=== PATIENT | female | born 1935 | race Caucasian/White ===

== ENCOUNTER → 2016-11-24 | Outpatient (CLI) | payer OTHER ==
[~2016-11-24] MED LIST: CENTRUM TABLET1 EACH; CLONAZEPAM 1 MG1 M1; COUMADIN 3 MG TA3 MG; DIGOXIN125 MCG; HYZAAR 100-251 EACH; NORCO 5-325 TA1 EACH PO; SIMVASTATIN20 MG
== END ==
LOC: RAD 01:43
DX: Z12.31 Encounter for screening mammogram for malignant neoplasm of breast (principal)

== ENCOUNTER 2017-08-22 08:33 | Inpatient (IN) | payer OTHER ==
[~2017-08-22] VITALS: Ht 160 cm; Wt 68.0 kg
[2017-08-22 08:34] VITALS: BP 128/54
[2017-08-22 09:20] LABS: ABSOLUTE NEUTROPHILS 5.5 thou/uL (1.4-8.2); BASOPHILS 0.4 % (0.0-2.0); EOSINOPHILS 0.1 % (0.0-3.0); HEMATOCRIT 36.7 % (37.0-47.0); HEMOGLOBIN 12.3 gm/dL (12.0-15.0); LYMPHOCYTES 7.4 % (24.0-44.0); MCH 30.5 pg (26.0-34.0); MCHC 33.7 g/dL (28.0-37.0); MCV 90.6 fL (80.0-100.0); MONOCYTES 8.8 % (1.0-8.0); PLATELET COUNT 133 thou/uL (150-400); POLYS 83.3 % (36.0-66.0); RBC 4.05 mil/uL (4.20-5.00); RDW 13.6 % (10.5-14.5); WBC 6.6 thou/uL (4.0-11.0)
[2017-08-22 09:27] LABS: CALCIUM 9.1 mg/dL (8.5-10.1); CREATININE 1.2 mg/dL (0.6-1.0); POTASSIUM 4.3 mmol/L (3.5-5.1)
[2017-08-22 09:32] LABS: INR 2.5; PROTIME 25.2 Seconds (9.3-11.4)
[2017-08-22 14:24] VITALS: BP 141/74
[2017-08-22 15:29] VITALS: BP 141/74
[2017-08-22 15:45] VITALS: BP 141/74
[2017-08-22] MEDS ORDERED: CLONAZEPAM 1 MG1 M1 PO (18:42)
[2017-08-22 19:45] VITALS: BP 105/67
[2017-08-23 04:50] VITALS: BP 108/54
[2017-08-23 05:33] LABS: HEMATOCRIT 33.6 % (37.0-47.0); HEMOGLOBIN 11.3 gm/dL (12.0-15.0); MCH 30.7 pg (26.0-34.0); MCHC 33.7 g/dL (28.0-37.0); MCV 90.9 fL (80.0-100.0); RBC 3.7 mil/uL (4.20-5.00); RDW 13.8 % (10.5-14.5); WBC 3.6 thou/uL (4.0-11.0)
[2017-08-23 05:39] LABS: CREATININE 1.3 mg/dL (0.6-1.0); POTASSIUM 4.2 mmol/L (3.5-5.1)
[2017-08-23 08:15] VITALS: BP 105/60
[2017-08-23 11:45] VITALS: BP 123/69
[2017-08-23 17:02] VITALS: BP 135/62
[2017-08-23 19:20] VITALS: BP 133/60
[2017-08-24 03:30] VITALS: BP 139/84
[2017-08-24 06:47] LABS: HEMATOCRIT 33.5 % (37.0-47.0); HEMOGLOBIN 11.1 gm/dL (12.0-15.0); MCH 30.5 pg (26.0-34.0); MCHC 33.2 g/dL (28.0-37.0); MCV 91.8 fL (80.0-100.0); RBC 3.64 mil/uL (4.20-5.00); RDW 13.9 % (10.5-14.5); WBC 3.1 thou/uL (4.0-11.0)
[2017-08-24 07:00] LABS: INR 1.5; PROTIME 15.1 Seconds (9.3-11.4)
[2017-08-24 07:02] LABS: CALCIUM 7.7 mg/dL (8.5-10.1); CREATININE 1.1 mg/dL (0.6-1.0); POTASSIUM 3.9 mmol/L (3.5-5.1)
[2017-08-24 07:53] VITALS: BP 150/80
[2017-08-24 12:06] LABS: TSH 3.881 uIU/mL (0.358-3.740)
[2017-08-24 15:20] VITALS: BP 145/76
[2017-08-24 15:22] VITALS: BP 145/76
[2017-08-24 20:00] VITALS: BP 175/84
[2017-08-25 03:50] VITALS: BP 128/63
[2017-08-25 04:30] LABS: ABSOLUTE NEUTROPHILS 2.3 thou/uL (1.4-8.2); BASOPHILS 0.3 % (0.0-2.0); EOSINOPHILS 3.4 % (0.0-3.0); HEMATOCRIT 33.8 % (37.0-47.0); HEMOGLOBIN 11.2 gm/dL (12.0-15.0); LYMPHOCYTES 33.1 % (24.0-44.0); MCH 30.3 pg (26.0-34.0); MCHC 33.2 g/dL (28.0-37.0); MCV 91.3 fL (80.0-100.0); PLATELET COUNT 111 thou/uL (150-400); POLYS 55.2 % (36.0-66.0); RDW 13.8 % (10.5-14.5); WBC 4.1 thou/uL (4.0-11.0)
[2017-08-25 04:39] LABS: MAGNESIUM 1.7 mg/dL (1.8-2.4); POTASSIUM 4.1 mmol/L (3.5-5.1)
[2017-08-25 08:05] VITALS: BP 139/77
[2017-08-25 16:22] VITALS: BP 154/68
[2017-08-25 19:15] VITALS: BP 147/67
[2017-08-26 03:40] VITALS: BP 148/76
[2017-08-26 07:02] LABS: HEMATOCRIT 33.4 % (37.0-47.0); HEMOGLOBIN 11.3 gm/dL (12.0-15.0); MCH 30.4 pg (26.0-34.0); MCHC 33.6 g/dL (28.0-37.0); MCV 90.4 fL (80.0-100.0); RBC 3.7 mil/uL (4.20-5.00); RDW 13.9 % (10.5-14.5); WBC 5.1 thou/uL (4.0-11.0)
[2017-08-26 07:19] LABS: INR 1.5; PROTIME 15.7 Seconds (9.3-11.4)
[2017-08-26 07:20] LABS: CALCIUM 8.6 mg/dL (8.5-10.1); POTASSIUM 4.2 mmol/L (3.5-5.1)
[2017-08-26 07:41] VITALS: BP 157/78
[2017-08-26 08:21] VITALS: BP 157/78
[2017-08-26] MEDS ORDERED: REQUIP 0.25 M0.25 MG PO (13:15)
[2017-08-26] MEDS ORDERED: TAMIFLU30 MG PO (13:15)
[2017-08-26] MEDS ORDERED: TESSALON PERLE100 MG PO (13:15)
[2017-08-26 13:17] LABS: % SATURATION 12 % (20-39); IRON 29 ug/dL (50-170); TIBC 234 ug/dL (250-450)
[2017-08-26] MEDS ORDERED: COUMADIN 5 MG TA5 M1 PO (13:30)
[2017-08-26] MEDS ORDERED: COUMADIN 2.5MG2.5 M1 PO (13:30)
== END 2017-08-26 14:55 | disposition home health service (06) | DRG 871 ==
LOC: ER 08:33 → EROBS 10:07 → 3W 10:07
PROVIDERS: Emergency Medicine; Hospitalist; Registered Nurse
DX: A41.9 Sepsis, unspecified organism (principal); J96.01 Acute respiratory failure with hypoxia; E87.2 Acidosis; D61.818 Other pancytopenia; F41.9 Anxiety disorder, unspecified; J10.1 Influenza due to other identified influenza virus with other respiratory manifestations; I48.2 Chronic atrial fibrillation; I10 Essential (primary) hypertension; E78.00 Pure hypercholesterolemia, unspecified; Z87.442 Personal history of urinary calculi; Z87.81 Personal history of (healed) traumatic fracture; Z79.01 Long term (current) use of anticoagulants; Z79.899 Other long term (current) drug therapy
CPT/HCPCS: 10879

== ENCOUNTER → 2017-12-26 | Outpatient (CLI) | payer OTHER ==
[~2017-12-26] MED LIST changes: +CLONAZEPAM 1 MG1 M1 PO; +COUMADIN 2.5MG2.5 M1 PO; +COUMADIN 5 MG TA5 M1 PO; +REQUIP 0.25 M0.25 MG PO; +TAMIFLU30 MG PO; +TESSALON PERLE100 MG PO
== END ==
LOC: RAD 13:21
DX: Z12.31 Encounter for screening mammogram for malignant neoplasm of breast (principal)

== ENCOUNTER → 2018-01-25 | Outpatient (CLI) | payer OTHER | LOC: RAD 01:13 | DX: N60.01 Solitary cyst of right breast (principal) ==

== ENCOUNTER 2018-07-11 18:24 | Inpatient (IN) | payer OTHER ==
[~2018-07-11] VITALS: Ht 157.5 cm; Wt 72.8 kg
[2018-07-11 18:30] VITALS: BP 173/82
--- NOTE | 2018-07-11 18:55 | NUR ---
REPORT TO LU CARBAJAL
[2018-07-11 18:56] LABS: ABSOLUTE NEUTROPHILS 2.9 thou/uL (1.4-8.2); BASOPHILS 0.6 % (0.0-2.0); EOSINOPHILS 2.7 % (0.0-3.0); HEMATOCRIT 39.7 % (37.0-47.0); HEMOGLOBIN 13.4 gm/dL (12.0-15.0); MCH 30.9 pg (26.0-34.0); MCHC 33.8 g/dL (28.0-37.0); MCV 91.4 fL (80.0-100.0); MONOCYTES 9.5 % (1.0-8.0); PLATELET COUNT 175 thou/uL (150-400); POLYS 52.2 % (36.0-66.0); RBC 4.34 mil/uL (4.20-5.00); RDW 13.5 % (10.5-14.5); WBC 5.6 thou/uL (4.0-11.0)
[2018-07-11 19:02] LABS: ANION GAP 10 mmol/L (7-16); BUN 20 mg/dL (7-18); CALCIUM 8.7 mg/dL (8.5-10.1); CHLORIDE 95 mmol/L (98-107); CO2 27 mmol/L (21-32); CREATININE 1.1 mg/dL (0.6-1.0); GLUCOSE 106 mg/dL (74-106); POTASSIUM 3.8 mmol/L (3.5-5.1); SODIUM 132 mmol/L (136-145)
[2018-07-11 19:10] LABS: ALBUMIN 3.8 g/dL (3.4-5.0); SGOT 34 U/L (15-37); SGPT 78 U/L (30-65); TOTAL BILIRUBIN 0.6 mg/dL (<0.1-1.0); TROPONIN-I <0.06 ng/mL (<0.06)
[2018-07-11] MEDS ORDERED: TYLENOL325 MG PO (19:44)
[2018-07-11] MEDS ORDERED: REQUIP 0.25 M0.25 MG PO (19:44)
[2018-07-11 19:56] LABS: BE(vivo) -1.7 mmol/L (-2 to +3); HCO3 23.2 mmol/L (22.0-26.0); PO2 73.1 mmHg (80.0-100.0); pH 7.382 (7.360-7.450); sO2 94.5 % (92.0-98.0)
[2018-07-11 21:11] LABS: INR 4.4; PROTIME 45.5 Seconds (9.3-11.4)
[2018-07-11 21:21] VITALS: BP 145/63
[2018-07-11 22:09] VITALS: BP 149/61
--- NOTE | 2018-07-11 23:36 | EKG ---
[address] [address] ELECTROCARDIOGRAM REPORT Name: ANANT SWEET Room #: 464-P ADM IN M.R.#: [id number] Admission: 07/11/18 Attend Phys: Fabien Mcneill MD Discharge: Date of : 37 Report #: [id number] THIS REPORT FOR: //name// [facility] ED Test Date: 2018-07-11 Test Time: 18:38:56 Pat Name: ANANT SWEET Department: Room: 464 Gender: F Accountant Cost: : [id number] Requested By: Caterina Powers Order Number: [id number] MD: Keshav Garner Measurements Intervals [place] Rate: 73 P: NE: QRS: 99 QRSD: 97 T: -55 QT: 416 QTc: 459 Interpretive Statements Atrial fibrillation Anteroseptal infarct, age indeterminate Compared to ECG 07/08/2006 12:35:44 Myocardial infarct finding now present ST (T wave) deviation no longer present Electronically Signed On 07-11-2018 23:35:56 MANAGER OF DISTRIBUTION by Keshav Garner [email or web address] <ELECTRONICALLY SIGNED> By: Keshav Garner MD 07/11/18 2335 1838 1838 Keshav Garner MD /EPI
--- NOTE | 2018-07-12 03:22 | NUR ---
CAME IN TO GIVE PATIENT RESP TX, NOTICED HER BREATHING WAS LABORED, LONG EXPIRATORY WHEEZE THAT WAS NOT THERE AT 11PM TX. BNP FROM ER WAS ELEVATED. REPORTED CONCERNS TO RN. ROOM AIR SAT = 93%
[2018-07-12 04:24] VITALS: BP 161/88
[2018-07-12 05:27] LABS: HEMATOCRIT 37.5 % (37.0-47.0); HEMOGLOBIN 12.4 gm/dL (12.0-15.0); MCH 30.4 pg (26.0-34.0); MCV 92.2 fL (80.0-100.0); RBC 4.07 mil/uL (4.20-5.00); RDW 13.3 % (10.5-14.5); WBC 4.9 thou/uL (4.0-11.0)
[2018-07-12 05:39] LABS: INR 3.8; PROTIME 39.6 Seconds (9.3-11.4)
[2018-07-12 05:56] LABS: CALCIUM 8.3 mg/dL (8.5-10.1); CREATININE 1.1 mg/dL (0.6-1.0)
--- NOTE | 2018-07-12 06:19 | NUR ---
Received pt from ED. Pt has been having SOA x1 week. Chest x-ray showed cardiopulmonary disease. Pt is on Bioniz tele running afib. Shes on 2L NC. She has I.V on R AC. Up x1 with cane. AOX4. Bed in lowest position. Call light within reach. Will continue to monitor.
[2018-07-12 07:41] VITALS: BP 134/62
--- NOTE | 2018-07-12 09:45 | NUR ---
cm visited with pt, daughter servando and sister in law at bedside. colette is able to speak and understands polish, primary is japanese per colette. pt is a & o x 3, [place] and [place]. intro to cm and transition of care, home health and post acute. " oh no i will not go to home, i work 23 years in [employer] and i seen."/colette. pt because little tearful. re-education that was just giving some examples on how cm can assist and help pt with transition out of hospital if unable to return home or if needing some therapy. pt on o2, reported that she does not have home oxygen. " live alone, has cane, walker, grab bars, independent. manage own medication prior. did not drive, family and friends take her where she needs to go. she just got back from [place], visited her brother who is ill, not heat, not hot water where she was stay and go sick there. if she need help at home, i can stay with her. family can do her laundry so she will not have to go to basement 15 steps down."/colette and daughter servando. pt walker with therapy. recommendation home with hh will cont following as needed for dc needs. resources for hh provided and [facility] as well. hh referral sent. will cont following as needed for dc needs.
--- NOTE | 2018-07-12 11:22 | NUR ---
Pt vs stable this am, at 11:00 am pt's breathing was labored, RT in the room lungs are clear, O2sat is at 98. Pt will be going down to get her echo test done.
--- NOTE | 2018-07-12 13:54 | 2DMMODE ---
[facility] [address] [place] [address] 2 D/M-MODE ECHOCARDIOGRAM Name: SWEETANANT Room #: 464-P ADM IN M.R.#: [id number] Admission: 07/11/18 Attend Phys: Fabien Mcneill, Discharge: Date of : 37 Date of Service: 07/12/18 1353 Report #: [id number] THIS REPORT FOR: //name// APPROVED REPORT Study performed: 07/12/2018 11:34:46 EXAM: Comprehensive 2D, Doppler, and color-flow Echocardiogram Patient Location: Echo lab Room #: 464 Status: routine BSA: 1.74 HR: 94 bpm Rhythm: Atrial Fibrillation Other Information Study Quality: Good Indications Diabetes Atrial Fibrillation Dyspnea Hypertension/HDD 2D Dimensions IVSd: 9.11 (7-11mm) LVOT Diam: 22.11 (18-24mm) LVDd: 49.99 mm PWd: 8.50 (7-11mm) Ascending Ao: 26.58 (22-36mm) LVDs: 33.84 (25-40mm) Aortic Root: 22.45 mm IVC: 24.00 mm Volumes Left Atrial Volume (Systole) Single Plane 4CH: 136.86 mL Single Plane 2CH: 158.81 mL LA ESV Index: 88.00 mL/m2 Aortic Valve AoV Peak Ja.: 1.72 m/s AO Peak Gr.: 11.85 mmHg LVOT Max P.45 mmHg LVOT Max V: 1.16 m/s THANH Vmax: 2.60 cm2 Mitral Valve MV Peak Gr.: 14.08 mmHg [facility] [address] [place] [address] 2 D/M-MODE ECHOCARDIOGRAM Name: ANANT SWEET Room #: 464-P ADM IN .R.#: [id number] Admission: 07/11/18 Attend Phys: Fabien Mcneill, Discharge: Date of : 37 Date of Service: 07/12/18 1353 Report #: [id number] MV Mean Gr.: 5.77 mmHg MV Max Ja.: 1.87 m/s MV Mean Ja.: 1.09 m/s MV VTI: 496.87 mm MV PHT: 123.35 ms MVA (PHT): 1.78 cm2 Pulmonary Valve PV Peak Ja.: 1.30 m/s PV Peak Gr.: 6.82 mmHg Tricuspid Valve TR Peak Ja.: 2.21 m/s TR Peak Gr.: 19.77 mmHg PA Pressure: 35.00 mmHg Left Ventricle The left ventricle is normal size. There is normal LV segmental wall motion. There is normal left ventricular wall thickness. The left ventricular systolic function is normal. The left ventricular ejection fraction is within the normal range. LVEF is 55-60%. This study is not technically sufficient to allow evaluation of the LV diastolic function due to atrial fibrillation. Right Ventricle The right ventricle is normal size. The right ventricular systolic function is normal. Atria Left atrium is dilated. Right atrium is dilated. Aortic Valve The aortic valve is normal in structure. No aortic regurgitation is present. There is no aortic valvular stenosis. Mitral Valve The mitral valve is normal in structure. Moderate mitral regurgitation. Mild mitral stenosis. Tricuspid Valve The tricuspid valve is normal in structure. There is mild tricuspid regurgitation. Estimated PAP 35 mmHg. There is mild pulmonary hypertension. Pulmonic Valve The pulmonary valve is normal in structure. Trace pulmonic regurgitation. [facility] [address] [address] 2 D/M-MODE ECHOCARDIOGRAM Name: ANANT SWEET Room #: 464-P ADM IN M.R.#: [id number] Admission: 07/11/18 Attend Phys: Fabien Mcneill, Discharge: Date of : 37 Date of Service: 07/12/18 1353 Report #: [id number] Great Vessels The aortic root is normal in size. The inferior vena cava is dilated with no inspiratory collapse. Pericardium Small pericardial effusion. <Conclusion> The left ventricle is normal size. LVEF is 55-60%. This study is not technically sufficient to allow evaluation of the LV diastolic function due to atrial fibrillation. The right ventricle is normal size. Left atrium is dilated. Right atrium is dilated. The aortic valve is normal in structure. Moderate mitral regurgitation. Mild mitral stenosis. There is mild tricuspid regurgitation. Estimated PAP 35 mmHg. There is mild pulmonary hypertension. The aortic root is normal in size. Small pericardial effusion. <ELECTRONICALLY SIGNED> By: Taran Julian MD, FACC 07/12/18 1353 1353 1353 Taran Julian MD, FACC /INF
[2018-07-12 14:28] VITALS: BP 133/53
[2018-07-12 20:48] VITALS: BP 139/71
[2018-07-13 04:39] VITALS: BP 139/62
[2018-07-13 04:58] LABS: INR 3.6; PROTIME 37.5 Seconds (9.3-11.4)
--- NOTE | 2018-07-13 05:16 | NUR ---
ASSUMED CARE OF PT APPROX 1900HRS PT A&O X4 LANGAUGE BARRIER NAMIBIAN SPEAKING COOPERATIVE DURING BUT OCC ANXIOUS. PT ON 3L O2 PER NC. SBA WITH TRANSFERS. CHROMIC AFIB ON TELE. OCC C/O LOW BACK PAIN EFFECTIVELY CONTROLLED VIA PRN PAIN MEDS.
[2018-07-13 08:20] VITALS: BP 138/62
--- NOTE | 2018-07-13 12:31 | HC ---
[facility] [place] [address] CONSULTATION Name: ANANT SWEET Room #: 464-P ADM IN M.R.#: [id number] Admission: 07/11/18 Attend Phys: Fabien Mcneill MD Discharge: Date of : 37 Report #: [id number] THIS REPORT FOR: //name// CC: Bri Mcneill REASON FOR CONSULTATION: I was asked to evaluate concerning pneumonia and travel to [place]. HISTORY OF PRESENT ILLNESS: The patient is an 83-year-old woman immigrant from [place] who has underlying valvular heart disease and atrial fibrillation. She was in [place] the past 2 weeks, visiting her brother who was ill. This past week, she developed cough with congestion, light colored sputum production along with low-grade fever without chills or sweats. She became more dyspneic and was seen by local physician in [facility], who placed her on lincomycin and some oral cough preparations. She did not feel she improved with this treatment. She flew back to [facility] yesterday and was brought into the Emergency Room. She has remained afebrile and hemodynamically stable. She denies any chest pain either substernal or pleuritic. There has been no hemoptysis. She has had minimal sputum production since presentation. Denies any sinus congestion, postnasal drip, oral lesions or pharyngitis symptoms. Denies any skin rashes or lymphadenopathy. She has been updated on her vaccinations for influenza and pneumococcal vaccines. No other travel partners were ill. She slept in the same room with her sister who has been well. She has underlying cardiovascular ischemia. She has underlying valvular heart disease with atrial fibrillation and on anticoagulation. She has had significant mitral stenosis and regurgitation, has been followed by Cardiology service. REVIEW OF SYSTEMS: Ten point review of systems was otherwise negative than what has been described above. ALLERGIES: None known. MEDICATIONS: As noted on her MAR, which were reviewed including Tessalon, Klonopin, digoxin, losartan, hydrochlorothiazide, ReQuip, Zocor, simvastatin and Coumadin. She was given doxycycline in the Emergency Room. PAST MEDICAL HISTORY: Atrial fibrillation, rheumatic fever, mitral stenosis and regurgitation, hypertension, hyperlipidemia, nephrolithiasis, umbilical herniorrhaphy, prior ankle fractures. FAMILY HISTORY: Noncontributory. SOCIAL HISTORY: She is a , has been in [facility] since the 1960s. Previously worked in residential. Nonsmoker, no significant alcohol intake. [facility] [address] [place] [address] CONSULTATION Name: ANANT SWEET Room #: 464-P [facility] IN ..#: [id number] Admission: 07/11/18 Attend Phys: Fabien Mcneill MD Discharge: Date of : 37 Report #: [id number] PHYSICAL EXAMINATION: VITAL SIGNS: Afebrile, heart rate 80, blood pressure 134/62, respiratory rate 16. She is on 2 liters of oxygen per nasal cannula. Last oxygen saturation in the chart was normal on room air. ABG on room air showed pO2 of 73, pCO2 of 40, pH 7.38. GENERAL: She was alert and cooperative. She was dyspneic. She was anxious, family members were in the room. SKIN: Without lesion or rash. No palpable adenopathy. Mild obesity. HEENT: Eyes nonicteric with no conjunctivitis. Mouth without lesion or mucositis. No posterior oropharynx injection. NECK: Supple with no thyromegaly, mass or JVD. LUNGS: Few crackles in the mid posterior right chest. No consolidation or rub. HEART: Irregular with a 2/6 systolic murmur heard at the apex. No gallop or rub. ABDOMEN: Soft, nontender, no hepatosplenomegaly or mass. GENITAL AND RECTAL: Not performed. BACK: Nontender involving the spine or CVA regions. Cranial nerves intact. Strength in the upper and lower extremities were normal. Sensation normal. The patient was able to sit up to the side of bed on her own. There is no evidence of vertigo or instability. Mood was normal other than mild anxiety with normal mental status. Chest x-ray unremarkable. CT scan showed patchy right lung pulmonary infiltrate and increased interstitial changes. Sodium 135, potassium 4, creatinine 1.1, bicarbonate 25. INR 3.8, hemoglobin 12.4, platelet count 161,000. WBC 4.9 with 52% segs, 35% lymphs. Liver function test normal. BNP 1452. IMPRESSION: 1. An 83-year-old with underlying valvular heart disease and permanent atrial fibrillation who presents with community-acquired pneumonia that developed in [place]. Typical community-acquired organisms are most likely. Viral etiology included. The patient continues to have dyspnea, which may have a component of cardiogenic process as well. 2. Hypertension, controlled. 3. Atrial fibrillation. 4. Valvular heart disease. 5. Anxiety. RECOMMENDATION: We will continue antibiotic coverage with azithromycin, ceftriaxone, and Tamiflu. Check viral respiratory panel, sputum culture. Follow up chest x-ray, urine antigens. <ELECTRONICALLY SIGNED> By: Elias Dumont MD 07/13/18 1231 1332 2132 Elias Dumont MD /nt
[2018-07-13 14:58] VITALS: BP 145/65
--- NOTE | 2018-07-13 15:15 | HC ---
[facility] [place] [address] CONSULTATION Name: ANANT SWEET Room #: 464-P ADM IN M.R.#: [id number] Admission: 07/11/18 Attend Phys: Fabien Mcneill MD Discharge: Date of : 37 Report #: [id number] THIS REPORT FOR: //name// CC: Bri Mcneill DATE OF SERVICE: 07/12/2018 REFERRAL PHYSICIAN: Dr. Fabien Mcneill. REASON FOR REFERRAL: Dyspnea. HISTORY OF PRESENT ILLNESS: The patient is patient is an 83-year-old female who presents to the Emergency Room with dyspnea, cough and congestion. A Pulmonary consultation was requested. The patient normally lives in the [facility]. She was visiting [place] past week. While she was there, she noticed fever, cough productive of purulent sputum. In [place], she was given lincomycin, mucolytic and anti-inflammatory agents. She returned to the [facility] couple days ago. With symptoms worsening, she presents to the Emergency Room. Presently, she appears distressed, more so from stress from her family in [place]. The 2 daughters present were tearful. The patient was also tearful and appears quite upset. Otherwise, she says she feels about the same. Dyspnea is no worse. She denies any hemoptysis, nausea or vomiting. PAST MEDICAL HISTORY: History notable for permanent atrial fibrillation, on chronic anticoagulation; mitral stenosis along with regurgitation; hypertension; hypercholesterolemia; nephrolithiasis. PAST SURGICAL HISTORY: Status post umbilical hernia repair, bilateral ankle surgery. ALLERGIES: None. HOME MEDICATIONS: Hyzaar, Lanoxin, Centrum, clonazepam, Coumadin, simvastatin, ReQuip, Tylenol. She was recently on Tamiflu, Tessalon Perles. FAMILY HISTORY: Noncontributory. SOCIAL HISTORY: Denies any tobacco or alcohol use. REVIEW OF SYSTEMS: As mentioned above. Recent travel to [place]. Otherwise, 10-point system review negative. [facility] [address] [place] [address] CONSULTATION Name: ANANT SWEET Room #: 464-P [facility] IN .R.#: [id number] Admission: 07/11/18 Attend Phys: Fabien Mcneill MD Discharge: Date of : 36 Report #: [id number] PHYSICAL EXAMINATION: GENERAL: She is awake, alert, appears mildly distressed primarily due to emotional distress from family issues. She appears to be upset. VITAL SIGNS: Temperature is 97.8 degrees Fahrenheit, pulse is 80, respiratory rate is 18, blood pressure 130/62 mmHg, saturation is 98%. HEENT: Normocephalic, atraumatic. NECK: Supple, without any lymphadenopathy or thyromegaly. CHEST: Breath sounds are good bilaterally. Few scattered crackles in the bases. No wheezes. CARDIOVASCULAR: Normal S1, S2. No murmurs or gallop. There is no JVD. There is no carotid bruit. Pulses are 2+/4+ bilaterally. ABDOMEN: Soft, nontender, no organomegaly or masses felt. GENITOURINARY: Deferred. RECTAL: Deferred. EXTREMITIES: There is no edema, cyanosis or clubbing. LABORATORY DATA: Chest x-ray is reviewed, shows cardiomegaly. Otherwise, no acute infiltrate seen. CT chest angiogram shows patchy ground-glass opacity. No evidence of pulmonary embolus, patchy areas of consolidation, cardiomegaly. Otherwise, no other abnormalities noted. Influenza A and B swab is negative. BNP is 1400. Lactic acid is normal. Electrolytes normal. Creatinine is 1.1. Liver enzymes are grossly unremarkable. WBC 5600, hemoglobin is normal, platelets are normal. No evidence of bandemia. No evidence of eosinophilia. Arterial blood gas revealed pH 7.38, pCO2 40, pO2 73 on room air. IMPRESSION: 1. Progressive dyspnea, productive cough in this 83-year-old female. She recently traveled to [place]. CT chest angiogram shows ground glass opacity with mild patchy infiltrates. Suspect pneumonia. With cardiomegaly, ground glass opacity, cannot rule out component of heart failure. 2. Permanent atrial fibrillation, on chronic anticoagulation. 3. Mitral stenosis/regurgitation. 4. Hypertension. 5. Nephrolithiasis. 6. Diabetes mellitus type 2. 7. Hypertension. 8. Restless legs syndrome, on ReQuip. RECOMMENDATION: Agree with broad-spectrum antibiotics to cover for community-acquired pneumonia. DVT and GI prophylaxis recommended. Gentle diuresis may be helpful. [address] [address] CONSULTATION Name: ANANT SWEET Room #: 464-P ADM IN M.R.#: [id number] Admission: 07/11/18 Attend Phys: Fabien Mcneill MD Discharge: Date of : 37 Report #: [id number] Thank you for this consultation. <ELECTRONICALLY SIGNED> By: Alfred Rios MD 07/13/18 1515 1347 2152 Alfred Rios MD /nt
[2018-07-13 19:37] VITALS: BP 155/56
--- NOTE | 2018-07-13 20:05 | NUR ---
Pt stable through out the shift, went down for an xray this am. Family came to visit and pt exhibited labored breathing, O2 sat was at 98% on 2L via NC. Labored breathing resolved in the afternoon when family had left. Pt is eating and drinking more today compared to yesterday. No complaints of pain was noted.
[2018-07-14 04:09] VITALS: BP 134/69
[2018-07-14 05:42] LABS: INR 3.5; PROTIME 36.5 Seconds (9.3-11.4)
[2018-07-14 08:00] VITALS: BP 150/74
--- NOTE | 2018-07-14 08:23 | NUR ---
progress pt slept most of shift up with sba and cane to br voiding qs, taking tramadol for pain with effect pt slept most of shift vss, continue poc.
[2018-07-14 15:00] VITALS: BP 157/66
[2018-07-14 19:40] VITALS: BP 171/47
--- NOTE | 2018-07-14 20:13 | NUR ---
Pt stable through out the shift, SOB is better as verbalized by the pt. Prefers hot soup and broh with her meals. No complaints or issues identified today.
[2018-07-15 02:45] VITALS: BP 148/61
[2018-07-15 05:46] LABS: HEMOGLOBIN 11.4 gm/dL (12.0-15.0); MCH 30.3 pg (26.0-34.0); MCHC 32.5 g/dL (28.0-37.0); MCV 93.3 fL (80.0-100.0); RBC 3.76 mil/uL (4.20-5.00); RDW 14.1 % (10.5-14.5); WBC 5.5 thou/uL (4.0-11.0)
[2018-07-15 05:56] LABS: INR 2.7; PROTIME 27.6 Seconds (9.3-11.4)
[2018-07-15 06:24] LABS: ALBUMIN 2.9 g/dL (3.4-5.0); CALCIUM 8.1 mg/dL (8.5-10.1); CREATININE 1.1 mg/dL (0.6-1.0); POTASSIUM 4.9 mmol/L (3.5-5.1); TOTAL BILIRUBIN 0.4 mg/dL (<0.1-1.0); TOTAL PROTEIN 6.4 g/dL (6.4-8.2)
[2018-07-15 07:54] VITALS: BP 152/77
[2018-07-15] MEDS ORDERED: CLONAZEPAM 0.50.5 M1 PO (12:57)
[2018-07-15] MEDS ORDERED: ZITHROMAX250 MG PO (13:00)
[2018-07-15 13:12] VITALS: BP 152/77
[2018-07-15 13:22] VITALS: BP 152/77
--- NOTE | 2018-07-15 14:18 | NUR ---
DISCHARGE NOTE: CHRISTIAN reviewed chart and spoke with nursing and attending physician. Pt is medically stable for discharge home today with HH services. SW notified intake at [facility] who confirms they are able to accept pt on service. CHRISTIAN spoke with pt's dtr, Xochilt, via phone to provide update and notify of d/c orders. Pt's dtr is aware and agreeable with discharge plan. Pt's family will provide transportation home later this evening. Pt's dtr is agreeable with plan for discharge and HH services. CHRISTIAN confirmed pt's home address/phone number. Pt's PCP is Dr. Bri Branch. CHRISTIAN updated pt's nurse. No further SW needs identified at this time, but is available to assist should needs arise.
[2018-07-15 14:54] VITALS: BP 142/54
--- NOTE | 2018-07-15 17:51 | NUR ---
ASSUMED PT CARE AT 0645. HAD SOME ISSUES WITH D/C TODAY. PT WAS D/C BY DR MROOCHO, WHICH PATIENT DISPUTED, SHE DIDNT FEEL READY TO COME HOME. SOCIAL WORK GOT INVOVLED AND CALLED DR KENNEDY WHOM OK THE CONSULT FOR U. CONSULTED DR BAHENA IN THE [facility]. HE SPOKE WITH DR MOROCHO AND MARQUITA MILLER AND GOT THE OK TO SEE HER. HE BELIEVES SHE WOULD BEENFIT FROM OUTPT SERVICES. PT WILL STAY THE NIGHT AND D/C IN THE MORNING. PT AND FAMILY OK WITH THIS PLAN. ANY QUESTIONS ABOUT THIS OCCURANCE OR REPORT PLEASE CONTACT MARQUITA MILLER WITH CASE MANAGEMENT.
[2018-07-15 19:31] VITALS: BP 149/73
[2018-07-16 04:19] VITALS: BP 142/64
[2018-07-16 08:04] VITALS: BP 148/62
[2018-07-16 08:51] LABS: FOLIC ACID 32.5 ng/mL (8.6-58.9)
--- NOTE | 2018-07-16 09:06 | NUR ---
PROGRESS PT A/O X4 UP AD ROSIE DENIES PAIN, REFUSES INSULIN, VOIDING QS, TELE INTACT READNING CHRONIC CONTROLLED AFIB CONTINUE TO MONITOR
[2018-07-16 09:15] LABS: INR 1.9; PROTIME 19.9 Seconds (9.3-11.4)
[2018-07-16] MEDS ORDERED: ACIDOPHILUS1 EAC4 PO (14:19)
[2018-07-16] MEDS ORDERED: PREDNISONE 10 M10 MG PO (14:19)
[2018-07-16] MEDS ORDERED: CEFDINIR300 MG PO (14:19)
[2018-07-16] MEDS ORDERED: VENTOLIN HFA 1818 GM INH (14:19)
[2018-07-16] MEDS ORDERED: MUCINEX1200 MG PO (14:25)
[2018-07-16 14:45] VITALS: BP 152/77
--- NOTE | 2018-07-16 14:47 | NUR ---
PT IS TO DISHARGE HOME THIS DAY. PT'S DTR IS AWARE AND AGREEABLE AND WILL BE PROVIDING TRANSPORT HOME THIS AFTERNOON. PT IS TO HAVE [facility] THEY ARE AWARE OF TODAYS DC. NO OTHER CM INTERVENTION INDICATED AT THIS TIME. CASE CLOSED.
--- NOTE | 2018-07-16 15:21 | NUR ---
ASSUMED CARE AT 0700. AXOX4. CALLS APPROPRIATELY. DAUGHTER AT [facility]. CLEARED BY PULMO, CLEARED BY CARDIO. RECEIVED AN ORDER TO D/C HOME WITH PO ATB TX. PT WAS EVALUATED BY AND AT BEDSIDE. PRESCRIPTIONS AND DC INSTRUCTIONS ARE GIVEN TO THE PT AND THE DAUGHTER AT BEDSIDE. IV REMOVED AND TELE REMOVED. BELONGINGS SENT WITH THE PT.
[2018-07-17 01:06] LABS: ADENOVIRUS Negative (Negative); INFLUENZA A Negative (Negative); INFLUENZA B Negative (Negative); METAPNEUMOVIRUS Negative (Negative); PARAINFLUENZA 1 Negative (Negative); PARAINFLUENZA 2 Positive (Negative); PARAINFLUENZA 3 Negative (Negative); RHINOVIRUS Negative (Negative); RSV A Negative (Negative); RSV B Positive (Negative)
--- NOTE | 2018-07-17 14:02 | HC ---
[facility] [place] [address] CONSULTATION Name: ANANT SWEET Room #: 464-P [facility] IN M.R.#: [id number] Admission: 07/11/18 Attend Phys: Fabien Mcneill MD Discharge: 07/16/18 Date of : 37 Report #: [id number] THIS REPORT FOR: //name// CC: Bri Calderónhr Fabien Mcneill DATE OF SERVICE: 07/15/2018 ATTENDING PHYSICIAN: Tomas Birch MD. Also, Dr. Mindy Rader had seen the patient on the for initial psychiatric consultation. SPECIAL NOTE: I was summoned today for a liaison and essentially family therapy session over the patient's refusal to discharge. SUBJECTIVE: This is an 83-year-old female admitted for pneumonia, influenza A positive, number of medical comorbidities. She is admitted for shortness of breath as her symptom. She is [place]. Limited Portuguese. When I got to the room, her daughter, Jacqueline, was there with her. The daughter provided limited translation. Also, I speak limited Montenegrin. In between the two of us, we were able to adequately communicate with the patient. Apparently, aside from the issues that had already been dealt with this admission, the patient today had a disagreement with the hospitalist who was caring for her prior to Dr. Birch, Dr. Aragon about her readiness for discharge. In discussion with the patient and family, the patient feels she needs an extra couple of days in the hospital. We discussed her feelings about this as well as the risks of staying in the hospital given her age and relatively opportunistic state. We also discussed factors such as panic generalized anxiety, various family relational issues. We agreed that a number of things will be best dealt with an outpatient setting including seeing Dr. Rader or one of her colleagues for psychiatric medication, followup as well as the patient having psychotherapy intake. Apparently in the past, Psychotherapy has been recommended to the patient, but she has declined. However, now she is, I would say in serious consideration of taking myself and others up on this recommendation. I communicated with Shayna Augustine, the surgical services manager, here at [facility]. She was in agreement that the patient's discharge should be delayed to Sunday noon tomorrow to allow time for the psychiatric appointment as well as psychotherapy. In addition, there is a concern that the patient and daughter will have adequate time to get any durable medical equipment needed like incentive spirometry, walker and medications together. Interestingly, while I was in the room, there was an intravenous bag of antibiotics hung, but not yet dispensed. OBJECTIVE: VITAL SIGNS: Temperature 36.9, pulse rate 68, respirations 17, BP 142/54, pulse ox 94%, I guess that was on room air 100% liter by cannula oxygen at 2 liters. LABORATORIES TODAY: H and H 7.4 and 35.0, not a point down from yesterday. [address] [address] CONSULTATION Name: ANANT SWEET Room #: 464-P [facility] IN M.R.#: [id number] Admission: 07/11/18 Attend Phys: Fabien Mcneill MD Discharge: 07/16/18 Date of : 36 Report #: [id number] White count 5.5, platelet count 172. INR is 2.7. PT 27.6. Chemistry: Glucose today point of care was 114 this morning, 165 prelunch, 125 predinner. Looks like there is a respiratory panel pending that must be confirmatory. The patient was not ambulatory for me in bed. MENTAL STATUS EXAMINATION: This is a well-developed, well-nourished female, disheveled in hospital gown with a raised back of her bed. Attention intact. Concentration intact. Speech normal rate, normal tone. The patient is oriented to person, place, situation at least grossly to time. She did note Eulogio was well logging captain mud analysis. Thought process linear and goal directed. Thought content focused on her concerns regarding discharge. Some psychomotor agitation. No psychomotor retardation. There was a bit of tachypnea when I saw her. Denied suicidal intent and plan. Denied hopelessness or helplessness. Denied homicidal intent or plan. Memory not formally tested today. Insight limited. Judgment fair. Fund of knowledge greater than average. 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 There is a role as well needed with medical team. PLAN: We will go ahead and change her Klonopin to scheduled 1 mg every 12 hours that is her regimen at home. Recommend continuing hospitalization. I plan for discharge 12:00 noon tomorrow. Recommend psychotherapy appointment as well as medication management appointment. Recommend appointment with primary care provider. Also, notify the patient's nurse and respiratory therapist. Incentive spirometry equipment was not at bedside. Time spent on discussion with the patient, review of records, coordination of care is about 80 minutes, so [place] [id number] [place]. <ELECTRONICALLY SIGNED> By: Kevin Green DO 07/17/18 [id number] Kevin Green, DO /nt
--- NOTE | 2018-07-19 10:52 | HC ---
[facility] [place] [address] CONSULTATION Name: ANANT SWEET Room #: 464-P [facility] IN M.R.#: [id number] Admission: 07/11/18 Attend Phys: Fabien Mcneill MD Discharge: 07/16/18 Date of : 36 Report #: [id number] THIS REPORT FOR: //name// CC: Bri Mcneill HISTORY OF PRESENT ILLNESS: The patient is an 83-year-old female. She is well known to myself. 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 My last echo was a year ago in the office. We will be repeating that today. She apparently traveled to [place] for the holiday, had gotten sick down there and received some antibiotics subcutaneously. I do not know what those were. She has had some progressive shortness of breath, fever and green and yellow sputum production with diarrhea. She presented to the Emergency Room last night here at [facility] and was admitted. It looks like she was taken lincomycin and some anti-inflammatory and possibly Mucinex. She is on permanent anticoagulation due to the AFib. HOME MEDICATIONS: Tessalon, Klonopin, digoxin 0.125, losartan/HCT 100/25, Requip, Zocor, simvastatin 10 and warfarin. PAST MEDICAL HISTORY: Positive for the permanent AFib, rheumatic fever with mitral stenosis and regurgitation. Moderate MR, hypertension, hypercholesterolemia, kidney stone, umbilical hernia repair, prior ankle fractures. ALLERGIES: No known drug allergies. FAMILY HISTORY: Negative for premature coronary disease. SOCIAL HISTORY: She has been a few years ago. She has a daughter who is involved with her care. No alcohol or tobacco use. REVIEW OF SYSTEMS: Negative except for stated above with his progressive illness, like symptoms from travel. LABORATORY DATA: Creatinine 1.1, potassium 3.3. BNP was 1400. White count 5.6, H and H 13 and 39. Digoxin level 1.2. Blood cultures were sent. Influenza antigen was sent. Chest x-ray, stable cardiomegaly, no acute process. CT of the chest, patchy areas of consolidation anterior and posterior right upper lobe suggestive of multifocal pneumonia, obviously community acquired. PHYSICAL EXAMINATION: GENERAL: She still appears somewhat ill, but improved. VITAL SIGNS: Blood pressure 160/70, pulse is 70s and irregular. HEENT: Eyes, no xanthelasmas. Pharynx is clear. NECK: Shows preserved upstrokes without JVD or bruits. [facility] [address] [place] [address] CONSULTATION Name: ANANT SWEET Room #: 464-P [facility] IN M.R.#: [id number] Admission: 07/11/18 Attend Phys: Fabien Mcneill MD Discharge: 07/16/18 Date of : 36 Report #: [id number] LUNGS: Some coarse sounds are noted. Diminished breath sounds, right greater than left. Few coarse sounds in the right upper lobe. CARDIAC: Irregularly irregular, S1, S2, holosystolic murmur. There is a faint diastolic rumble at the upper left sternal border and lower left sternal border. ABDOMEN: Soft and nontender. There are some subtle retractions with respiration. EXTREMITIES: Reveal trace of edema, nonpitting. NEUROLOGIC: Nonfocal. SKIN: Warm and dry without xanthoma or ulcer. MUSCULOSKELETAL: Generalized arthritic changes. ASSESSMENT: 1. Community-acquired pneumonia. 2. History of rheumatic valvular disease with at least moderate mitral stenosis and moderate mitral regurgitation. We will repeat echo. 3. Hypertension. 4. Hypercholesterolemia. 5. Degenerative joint disease. 6. History of mitral valve prolapse. 7. Chronic venous insufficiency. RECOMMENDATIONS AND PLAN: IV antibiotics. We will repeat her echo Doppler. Continue anticoagulation. Daily INRs. We will continue to follow with you. She has been relatively stable with regard to rheumatic valvular disease. Not considering valve replacement surgery at this time. I have discussed this with the patient and 2 daughters. <ELECTRONICALLY SIGNED> By: Taran Julian MD, FACC 07/19/18 1052 [id number] Taran Julian MD, FACC /nt
== END 2018-07-16 17:14 | disposition home health service (06) | DRG 193 ==
LOC: ER 18:24 → EROBS 21:13 → 4W 21:13 → ENTRNSPT 07-16 15:17 → EDTRNSPT 07-16 15:50 → 4W 07-16 17:14
PROVIDERS: Hospitalist; Nurse Practitioner Adult Health; Nurse Practitioner Family; Specialist; Student in an Organized Health Care Education/Training Program; ADMIT Internal Medicine
DX: J18.9 Pneumonia, unspecified organism (principal); J96.01 Acute respiratory failure with hypoxia; I38 Endocarditis, valve unspecified; E78.5 Hyperlipidemia, unspecified; I48.2 Chronic atrial fibrillation; I05.1 Rheumatic mitral insufficiency; M19.90 Unspecified osteoarthritis, unspecified site; M62.84 Sarcopenia; G47.00 Insomnia, unspecified; N18.3 Chronic kidney disease, stage 3 (moderate); F41.0 Panic disorder [episodic paroxysmal anxiety]; I13.10 Hypertensive heart and chronic kidney disease without heart failure, with stage 1 through stage 4 chronic kidney disease, or unspecified chronic kidney disease; I05.0 Rheumatic mitral stenosis; F32.9 Major depressive disorder, single episode, unspecified; E11.22 Type 2 diabetes mellitus with diabetic chronic kidney disease; N20.0 Calculus of kidney; G25.81 Restless legs syndrome; Z87.442 Personal history of urinary calculi; Z79.01 Long term (current) use of anticoagulants; Z79.899 Other long term (current) drug therapy; Z88.1 Allergy status to other antibiotic agents
CPT/HCPCS: 10045

== ENCOUNTER 2018-12-05 11:58 | Inpatient (IN) | payer OTHER ==
[~2018-12-05] VITALS: Ht 162.6 cm; Wt 69.7 kg
--- NOTE | ~2018-12-05 | HC ---
[facility] [place] [address] CONSULTATION Name: ANANT SWEET Room #: 355-P ADM IN M.R.#: [id number] Admission: 12/05/18 ������������������ Attend Phys: Tyler Bell MD Discharge: ������������������ Date of : 36 Report #: [id number] THIS REPORT FOR: //name// CC: Bri Bell DATE OF SERVICE: 12/06/2018 HISTORY OF PRESENT ILLNESS: The patient is an 83-year-old female who was admitted to [facility] on 12/05/2018. She was noted to be found on the ground in her house having been there for a few hours, unable to get up. She had a fall earlier and she had multiple falls in the last couple of days and has had a number of falls over the past year. The patient lives alone. She had right shoulder pain, forearm and wrist pain as well as left hip, leg pain. No acute fractures were noted other than a nasal fracture. She does have rhabdomyolysis, was started on IV fluids. There is a diagnosis of urinary tract infection with treatment underway and awaiting ONCOLOGY PHARMACIST. We are seeing her in rehabilitation medicine consultation. PAST MEDICAL HISTORY: Pneumonia, influenza, chronic atrial fibrillation, mitral stenosis and regurgitation, hypertension, high cholesterol, diabetes mellitus type 2, restless legs syndrome, kidney stone, bilateral ankle fracture, anxiety. HABITS: No history of tobacco or alcohol abuse. MEDICATIONS: Please see the full medication listing. ALLERGIES: LEVOFLOXACIN. SOCIAL HISTORY: Lives alone, 1 story 3 steps. She does have involved children, although they work. REVIEW OF SYSTEMS: Did not offer any current complaints of chest pain, shortness of breath, abdominal discomfort. She complains of multiple extremities with discomfort, especially her right upper extremity as well as some involving left upper extremity and lesser involving her legs. She does not like that right arm moved. PHYSICAL EXAMINATION: GENERAL: She is a pleasant 83-year-old female in no obvious distress. VITAL SIGNS: Last recorded temperature 98, pulse 103, respirations 20, and blood pressure 153/76. NEUROLOGIC: She is alert, pleasant, follows basic commands without difficulty. She holds the right upper extremity on a pillow. She does have multiple ecchymoses. She was able to raise that arm up; however, off the pillow with shoulder, forward flexion and appeared to have some movement of the elbow and [facility] [address] [place] [address] CONSULTATION Name: ANANT SWEET Room #: 355-P ADM IN M.R.#: [id number] Admission: 12/05/18 ������������������ Attend Phys: Tyler Bell MD Discharge: ������������������ Date of : 36 Report #: [id number] wrist, but again has overall discomfort. Left upper extremity revealed functional range of motion. Strength is probably a grade 4-/5. Lower extremities, functional range of motion. Strength is probably grade 4-/5. DTRs are trace to 1. ASSESSMENT: The patient is an 83-year-old female with the following problem list: 1. Gait instability with multiple falls. 2. Rhabdomyolysis. 3. Urinary tract infection. 4. Multiple contusions of her extremities. 5. Nasal fracture. Per radiographic study. 6. Urinary tract infection. Await culture and sensitivity. 7. History of chronic atrial fibrillation. 8. Mitral stenosis with regurgitation. 9. Hypertension. 10. Elevated cholesterol. 11. Diabetes mellitus type 2. 12. History of restless legs syndrome. 13. Lives alone. PLAN: Therapy evaluations are underway. Insurance will need to be checked regarding rehab therapy options. We will be glad to follow along with you regarding her rehab therapy needs. ��������������������������������������������� ���������������������������������������� By: ��������������������������������������������� 1059 14 Dominic Hurley MD /PMT
[~2018-12-05 11:58] MED LIST changes: +ACIDOPHILUS1 EAC4 PO; +CEFDINIR300 MG PO; +CLONAZEPAM 0.50.5 M1 PO; +MUCINEX1200 MG PO; +PREDNISONE 10 M10 MG PO; -SIMVASTATIN20 MG; +SIMVASTATIN20 MG PO; +TYLENOL325 MG PO; +VENTOLIN HFA 1818 GM INH; +ZITHROMAX250 MG PO
[2018-12-05 12:37] VITALS: BP 124/64
[2018-12-05 12:41] VITALS: BP 124/64
[2018-12-05 13:56] LABS: URINE BILIRUBIN NEGATIVE (Negative); URINE BLOOD 2+ (Negative); URINE CLARITY SL CLOUDY; URINE COLOR YELLOW; URINE GLUCOSE-RANDOM* NEGATIVE (Negative); URINE KETONES NEGATIVE (Negative); URINE LEUKOCYTES-REFLEX 3+ (Negative); URINE NITRITE-REFLEX POSITIVE (Negative); URINE PROTEIN (DIPSTICK) TRACE (Negative); URINE SPECIFIC GRAVITY <= 1.005 (1.005-1.035); URINE UROBILINOGEN 0.2 E.U./dl (0.2-1.0)
[2018-12-05 13:56] LABS: ABSOLUTE NEUTROPHILS 6.5 thou/uL (1.4-8.2); BASOPHILS 0.5 % (0.0-2.0); EOSINOPHILS 0.3 % (0.0-3.0); HEMATOCRIT 35.8 % (37.0-47.0); HEMOGLOBIN 12.1 gm/dL (12.0-15.0); LYMPHOCYTES 12.6 % (24.0-44.0); MCH 30.8 pg (26.0-34.0); MCHC 33.9 g/dL (28.0-37.0); MCV 91.1 fL (80.0-100.0); MONOCYTES 9.2 % (1.0-8.0); PLATELET COUNT 174 thou/uL (150-400); POLYS 77.4 % (36.0-66.0); RBC 3.93 mil/uL (4.20-5.00); RDW 13.4 % (10.5-14.5); WBC 8.4 thou/uL (4.0-11.0)
[2018-12-05 14:03] LABS: ANION GAP 5 mmol/L (7-16); BUN 22 mg/dL (7-18); CALCIUM 8.9 mg/dL (8.5-10.1); CHLORIDE 96 mmol/L (98-107); CO2 31 mmol/L (21-32); CREATININE 1.4 mg/dL (0.6-1.0); GLUCOSE 178 mg/dL (74-106); POTASSIUM 3.8 mmol/L (3.5-5.1); SODIUM 132 mmol/L (136-145)
[2018-12-05 14:05] LABS: BACTERIA-REFLEX >30 Many /HPF (None Seen); CASTS None Seen /LPF (None Seen); CRYSTALS None Seen /LPF (None Seen); SQUAMOUS None Seen /LPF (0-3); URINE RBC None Seen /HPF (0-2)
[2018-12-05 14:13] LABS: ALBUMIN 3.3 g/dL (3.4-5.0); SGOT 91 U/L (15-37); SGPT 122 U/L (30-65); TOTAL BILIRUBIN 0.7 mg/dL (<0.1-1.0); TOTAL PROTEIN 7.4 g/dL (6.4-8.2); TROPONIN-I <0.06 ng/mL (<0.06)
[2018-12-05] MEDS ORDERED: CLONAZEPAM 1 MG1 M1 PO (15:44)
[2018-12-05] MEDS ORDERED: LOSARTAN-HCTZ1 EAC2 PO (15:45)
[2018-12-05] MEDS ORDERED: VITAMIN D1000 UNI1 PO (15:47)
[2018-12-05 17:30] VITALS: BP 131/63
[2018-12-05 17:34] VITALS: BP 134/68
[2018-12-05 18:27] VITALS: BP 143/68
[2018-12-05 19:37] VITALS: BP 125/62
[2018-12-05] MEDS ORDERED: COUMADIN 5 MG TA5 M1 PO (20:01)
[2018-12-06 04:27] VITALS: BP 120/61
[2018-12-06 06:34] LABS: CALCIUM 8.5 mg/dL (8.5-10.1); CREATININE 0.9 mg/dL (0.6-1.0); POTASSIUM 3.5 mmol/L (3.5-5.1)
--- NOTE | 2018-12-06 06:44 | NUR ---
Dr. Bell called last night to reorder meds. Pt. requested med for pain med , hydrocodone ordered ,given to pt. wiht some relief. Assist to reposition , she does have generalized weakness and soreness all over her body. She slept well after pain med given. Cont. on isolatiom precautions. No bm this shift , unable to colled stool sample. Will continue to monitor.
--- NOTE | 2018-12-06 07:37 | NUR ---
Dr. Bell called last night to reorder home meds. Pt. requested pain med for left arm pain and generalized pain with some relief. She does have weakness and needs assist to reposition. She slept well during the night. External female catheter in place. Cont. on isolation precaution to R/O C diff. Reported she had loose bm in ED x2 but none since. Will continue to monitor.
[2018-12-06 07:45] VITALS: BP 153/76
[2018-12-06 11:21] VITALS: BP 144/70
[2018-12-06 12:22] LABS: TSH 2.753 uIU/mL (0.358-3.740)
--- NOTE | 2018-12-06 13:57 | NUR ---
met with patient and dtr at bedside. Patient admits with a fall at home. patient lives alone. She has laundry in her basement which she goes down to do laundry. She has 3 steps to enter. Family supportive and visit often. OT and phys note recommend post acute care. Patient with [employer] insurance. Gave list to dtr to review they are interested in [facility]. Patient with not a good experience in past with post acute care at a facility off [facility]. Dtr reports she lives in [facility] [place] and 2 dtrs in [facility] area want something close to all. She reviewed list and interested in referral to [facility]. Patient cannot dc to facility without auth from insurance for post acute care. Patient likely remain inpatient through weekend.
--- NOTE | 2018-12-06 14:11 | NUR ---
DISCHARGE PLANNING. POST ACUTE RECOMMENDED AT DISCHARGE. REFERRAL FAXED TO [facility] ADMISSIONS PER REQUEST. CALL PLACED TO [facility], ADMISSIONS. VOICE MAIL LEFT FOR ABRAHAM TO NOTIFY OF REFERRAL FAXED AND PATIENTS ANTICIPATED DISCHARGE FOR SUNDAY. FOLLOWING TO ASSIST WITH DC PLACEMENT.
--- NOTE | 2018-12-06 16:02 | EKG ---
[address] [place] [place] [address] ELECTROCARDIOGRAM REPORT Name: ANANT SWEET Room #: 355-P ADM IN M.R.#: [id number] ������������������ Admission: 12/05/18 ������������������ Attend Phys: Tyler Bell MD Discharge: ������������������ Date of : 36 Report #: [id number] ����������������������������������������������������������������� [id number] THIS REPORT FOR: //name// [facility] ED Test Date: 2018-12-05 Test Time: 13:22:11 Pat Name: ANANT SWEET Department: Room: 355 Gender: F Manufacturing Associate: [place] : 1935 Requested By: Larry Santillan Order Number: [id number] MD: Jovanni De Santiago Measurements Intervals [place] Rate: 88 P: WI: QRS: 82 QRSD: 93 T: -29 QT: 336 QTc: 407 Interpretive Statements Atrial fibrillation Borderline right axis deviation Anteroseptal infarct, old Borderline T abnormalities, inferior leads Compared to ECG 07/11/2018 18:38:56 No significant change was found Electronically Signed On 12-06-2018 16:01:59 CDT by Jovanni De Santiago [email or web address] ��������������������������������������������� <ELECTRONICALLY SIGNED> ���������������������������������������� By: Jovanni De Santiago MD, [facility] ��������������������������������������������� 12/06/18 1604 1322 1322 Jovanni De Santiago MD, [facility] /EPI
--- NOTE | 2018-12-06 16:08 | NUR ---
Assumed care of Pt at 0700. Pt is A&Ox4. Pt has complaints of significant pain and tenderness throughout RUE especially in wrist area. Pt visibly anxious when discussing moving or trying to touch RUE. PRN medication given for pain relief. PT and OT have been working with pt in room. Pt up to chair with 1 assist, stand and pivot. Pt had a RFA XR today, no fractures noted in results. Daughter at bedside. Pt is slowly progressing toward POC goals. Will continue to monitor and assess.
[2018-12-06 16:38] VITALS: BP 130/65
[2018-12-06 19:40] VITALS: BP 150/69
[2018-12-07 04:30] VITALS: BP 155/78
--- NOTE | 2018-12-07 04:32 | NUR ---
Patient making slow progress towards outcome goals. No BM, special contact isolation maintained until c diff R/O. Incontinent of bladder, female external catheter draining well. High fall risks, fall precautions in place. Uses call light appropriately for needs.
--- NOTE | 2018-12-07 04:50 | NUR ---
Left wrist, left shoulder and back of neck pain. Some pain relief after icepack and Hydrocodone.
[2018-12-07 07:53] VITALS: BP 163/77
[2018-12-07 15:54] VITALS: BP 139/66
--- NOTE | 2018-12-07 16:55 | NUR ---
Assumed care of patient at 0700. Vitals have been stable. Alert and oriented x4. Pleasant. Complaints of right wrist and neck pain. Discussed with Dr. Aragon at bedside today. PRN muscle relaxer ordered and heating pad for neck pain. CT scan of right arm / wrist ordered, as well. Shows minute fracture. Results called to Dr. Aragon. Order for ortho consult. Called to Dr. Harris; states may place wrist splint for patient and he will see patient in the morning. Patient reports better pain management today and is feeling better. Up with stand-by assist and gait belt. Has been up in chair most of day today. Incontinent at times; female external catheter in place. Using BSC at times. Fall precautions in place. Family at bedside throughout day. Isolation precautions discontinued per Dr. Aragon, since patient has not had a BM in a few days. Slowly progressing towards POC. Will continue to monitor.
[2018-12-07 19:50] VITALS: BP 152/74
--- NOTE | 2018-12-08 03:19 | NUR ---
Pt. has slept well during the night. Medicated for right wrist/hand pain with some relief. Splint applied to right hand and stated it helped. Using heating pad for neck pain. Assisted to reposition prn for comfort. Making progress towards cre plan goals.
[2018-12-08 04:00] VITALS: BP 152/85
[2018-12-08 07:57] VITALS: BP 155/78
--- NOTE | 2018-12-08 12:25 | NUR ---
Assumed care of patient at 0700. Vitals have been stable. Alert and oriented x4. Complaints of intense neck pain this morning, along with right wrist pain. PRN Soma given with partial relief; later gave Merriman. Heating pad applied to neck. Right wrist splint on. Currently sleeping. Patient up with one assist, gait belt. Up in chair this morning for breakfast for a few hours and then back to bed. Incontinent of urine; external female catheter in place. Daughter at bedside. Fall precautions in place. Attempting to progress towards POC. Will continue to monitor.
[2018-12-08 15:29] VITALS: BP 151/75
[2018-12-08 19:28] VITALS: BP 153/85
[2018-12-09 03:13] VITALS: BP 143/71
--- NOTE | 2018-12-09 05:03 | NUR ---
Medicated for pain with good relief. She slept well during the night. Repositioned prn for comfort. Heating pad for her neck in place. Bed alarm for safety.Making progress towards care plan goals.
[2018-12-09 07:37] VITALS: BP 147/60
--- NOTE | 2018-12-09 11:03 | NUR ---
Line Puller sent updates to [facility]. Patient needs authorization and will likely discharge today or tomorrow.
--- NOTE | 2018-12-09 15:14 | NUR ---
SW reviewed chart and spoke with nursing and attending physician. Pt is ready for discharge to post-acute care. Updated clinical info and therapy notes to [facility] for review. Awaiting input from insurance at this time. Anticipate determination from insurance tomorrow. SW left voice message for pt's dtr, Xochilt, to provide update. SW updated attending physician. SW is following to assist as needed with discharge planning.
[2018-12-09 16:21] VITALS: BP 138/67
--- NOTE | 2018-12-09 18:48 | NUR ---
PATIENT HAS BEEN IN PAIN IN BETWEEN PAIN MEDICATIONS. SHE PREFERS TO STAY ON W/C THROUGH THE DAY. WILL CONT WIHT PLAN OF CARE.
[2018-12-09 19:35] VITALS: BP 147/79
[2018-12-10 05:10] VITALS: BP 156/80
[2018-12-10 05:28] LABS: HEMATOCRIT 35.7 % (37.0-47.0); MCH 30.7 pg (26.0-34.0); MCHC 33.7 g/dL (28.0-37.0); MCV 91.1 fL (80.0-100.0); RBC 3.92 mil/uL (4.20-5.00); RDW 13.5 % (10.5-14.5); WBC 5.2 thou/uL (4.0-11.0)
[2018-12-10 05:53] LABS: CALCIUM 9.4 mg/dL (8.5-10.1); CREATININE 0.9 mg/dL (0.6-1.0); POTASSIUM 4.3 mmol/L (3.5-5.1)
--- NOTE | 2018-12-10 05:53 | NUR ---
PATIENT IS SLOWLY PROGRESSING IN HIS CARE PLAN. VITAL SIGNS STABLE WITH PATIENT HAVING NO COMPLAINTS OF NAUSEA. PATIENT DID COMPLAIN FREQUENTLY OF PAIN IN RIGHT WRIST AREA AND BACK WHICH WAS EFFECTIVELY TREATED WITH MEDICATIONS AND NON PHARMACOLOGICAL INTERVENTION. FULLY ORIENTED, PATIENT WAS ABLE TO PARTICIPATE IN CARE AND CALL APPROPRIATELY FOR REQUESTS. UP MULTIPLE TIMES TO BATHROOM WITH ASSISTANCE INCIDENT FREE, PATIENT IS CONSIDERED A HIGH FALL RISK. CONTINUE PLAN OF CARE.
[2018-12-10 07:36] VITALS: BP 153/92
[2018-12-10 08:18] VITALS: BP 153/92
--- NOTE | 2018-12-10 12:33 | NUR ---
Patient will dc today to [facility]. Mckenzie/admissions from [facility] called to tell dp that they obtained authorization. DP called [facility] patient care secretary to make a chart copy. Awaiting dc orders to be put in.
[2018-12-10] MEDS ORDERED: CARISOPRODOL 3350 M1 PO (12:42)
[2018-12-10] MEDS ORDERED: CEFDINIR300 MG PO (12:42)
--- NOTE | 2018-12-10 13:01 | NUR ---
DISCHARGE NOTE: SW reviewed chart and spoke with nursing and attending physician. Pt is medically stable for discharge to [facility]. SW notified that insurance authorization has been obtained. event planner to coordinate and notify family. Chart copy requested. Nursing to call report. No additional SW needs identified at this time, but is available to assist should needs arise.
== END 2018-12-10 15:32 | DRG 154 ==
LOC: ER 11:58 → 3W 15:35 → EROBS 15:35 → 3W 18:08
PROVIDERS: Internal Medicine; Physician Assistant; ADMIT Internal Medicine
PROC: 2W3CX1Z Immobilization of Right Lower Arm using Splint (ICD-10-PCS; principal; 2018-12-05)
DX: S02.2XXA Fracture of nasal bones, initial encounter for closed fracture (principal); N17.0 Acute kidney failure with tubular necrosis; N39.0 Urinary tract infection, site not specified; M62.82 Rhabdomyolysis; N17.9 Acute kidney failure, unspecified; R19.7 Diarrhea, unspecified; W18.39XA Other fall on same level, initial encounter; F41.9 Anxiety disorder, unspecified; R74.0 Nonspecific elevation of levels of transaminase and lactic acid dehydrogenase [LDH]; I48.2 Chronic atrial fibrillation; I05.0 Rheumatic mitral stenosis; T14.8XXA Other injury of unspecified body region, initial encounter; E78.00 Pure hypercholesterolemia, unspecified; G25.81 Restless legs syndrome; I10 Essential (primary) hypertension; E11.9 Type 2 diabetes mellitus without complications; Z79.84 Long term (current) use of oral hypoglycemic drugs; Z87.442 Personal history of urinary calculi; Z88.0 Allergy status to penicillin; Y93.89 Activity, other specified; Y92.89 Other specified places as the place of occurrence of the external cause; Y99.8 Other external cause status
CPT/HCPCS: 10080

== ENCOUNTER → 2019-01-31 | Outpatient (CLI) | payer OTHER ==
[~2019-01-31] MED LIST changes: +CARISOPRODOL 3350 M1 PO; +LOSARTAN-HCTZ1 EAC2 PO; +VITAMIN D1000 UNI1 PO
== END ==
LOC: RAD 00:23
DX: Z12.31 Encounter for screening mammogram for malignant neoplasm of breast (principal)

== ENCOUNTER → 2019-12-04 | Outpatient (CLI) | payer OTHER | LOC: SJCVCIMAG 10-01 09:27 | PROVIDERS: ATTEND Internal Medicine Cardiovascular Disease | DX: R94.31 Abnormal electrocardiogram [ECG] [EKG] (principal); I11.9 Hypertensive heart disease without heart failure; I48.91 Unspecified atrial fibrillation; I87.2 Venous insufficiency (chronic) (peripheral); I05.2 Rheumatic mitral stenosis with insufficiency; D68.59 Other primary thrombophilia; E78.00 Pure hypercholesterolemia, unspecified; Z79.899 Other long term (current) drug therapy ==

== ENCOUNTER → 2020-03-11 | Outpatient (CLI) | payer OTHER | LOC: RAD 14:19 | PROVIDERS: ATTEND Internal Medicine | DX: Z12.31 Encounter for screening mammogram for malignant neoplasm of breast (principal) ==

== ENCOUNTER → 2020-03-18 | Outpatient (CLI) | payer OTHER | LOC: SJCVC 13:37 | PROVIDERS: ATTEND Internal Medicine Cardiovascular Disease | DX: Z51.81 Encounter for therapeutic drug level monitoring (principal); I48.91 Unspecified atrial fibrillation; I34.0 Nonrheumatic mitral (valve) insufficiency; I87.2 Venous insufficiency (chronic) (peripheral); E78.00 Pure hypercholesterolemia, unspecified; I10 Essential (primary) hypertension; E11.9 Type 2 diabetes mellitus without complications; Z79.01 Long term (current) use of anticoagulants; Z98.890 Other specified postprocedural states; Z88.8 Allergy status to other drugs, medicaments and biological substances ==

== ENCOUNTER → 2020-09-01 | Outpatient (CLI) | payer OTHER | LOC: SJCVC 10:10 | PROVIDERS: ATTEND Internal Medicine Cardiovascular Disease | DX: R94.31 Abnormal electrocardiogram [ECG] [EKG] (principal); I48.91 Unspecified atrial fibrillation; I10 Essential (primary) hypertension; E78.00 Pure hypercholesterolemia, unspecified; D68.59 Other primary thrombophilia; I34.1 Nonrheumatic mitral (valve) prolapse; Z79.899 Other long term (current) drug therapy; Z88.1 Allergy status to other antibiotic agents ==

== ENCOUNTER 2020-11-09 21:50 | Inpatient (IN) | payer OTHER ==
[~2020-11-09] VITALS: Ht 132.1 cm; Wt 78.9 kg
[2020-11-09 22:06] VITALS: BP 152/75
[2020-11-09 23:05] LABS: ABSOLUTE NEUTROPHILS 4.5 thou/uL (1.4-8.2); BASOPHILS 0.5 % (0.0-2.0); HEMATOCRIT 36.4 % (37.0-47.0); HEMOGLOBIN 11.9 gm/dL (12.0-15.0); LYMPHOCYTES 20.5 % (24.0-44.0); MCH 30.9 pg (26.0-34.0); MCHC 32.8 g/dL (28.0-37.0); MCV 94.1 fL (80.0-100.0); MONOCYTES 7.4 % (1.0-8.0); PLATELET COUNT 172 thou/uL (150-400); POLYS 70.6 % (36.0-66.0); RBC 3.87 mil/uL (4.20-5.00); RDW 13.2 % (10.5-14.5); WBC 6.3 thou/uL (4.0-11.0)
[2020-11-09 23:11] LABS: APTT 30.9 Seconds (24.5-32.8); INR 1.22; PROTIME 13.2 Seconds (10.5-12.1)
[2020-11-09 23:12] LABS: ANION GAP 12 mmol/L (7-16); BUN 27 mg/dL (7-18); CHLORIDE 98 mmol/L (98-107); CO2 25 mmol/L (21-32); CREATININE 1.2 mg/dL (0.6-1.0); GLUCOSE 127 mg/dL (74-106); POTASSIUM 3.5 mmol/L (3.5-5.1); SODIUM 135 mmol/L (136-145)
[2020-11-09 23:23] LABS: ALBUMIN 3.9 g/dL (3.4-5.0); LIPASE 171 U/L (73-393); SGOT 19 U/L (15-37); SGPT 32 U/L (30-65); TOTAL BILIRUBIN 0.3 mg/dL (0.2-1.0); TOTAL PROTEIN 7.6 g/dL (6.4-8.2); TROPONIN-I <0.06 ng/mL (<0.06)
[2020-11-10] VITALS (8 sets, daily range): BP systolic 132–160; BP diastolic 54–88
[2020-11-10] MEDS ORDERED: SIMVASTATIN80 MG PO ×2 (00:23→00:25)
[2020-11-10] MEDS ORDERED: XARELTO15 MG PO (00:24)
[2020-11-10 00:25] LABS: URINE BILIRUBIN NEGATIVE (Negative); URINE BLOOD 1+ (Negative); URINE CLARITY CLEAR; URINE COLOR YELLOW; URINE GLUCOSE-RANDOM* NEGATIVE (Negative); URINE KETONES NEGATIVE (Negative); URINE LEUKOCYTES NEGATIVE (Negative); URINE NITRITE NEGATIVE (Negative); URINE PROTEIN (DIPSTICK) NEGATIVE (Negative); URINE SPECIFIC GRAVITY <= 1.005 (1.005-1.035); URINE UROBILINOGEN 0.2 E.U./dl (0.2-1.0)
[2020-11-10 00:38] LABS: BACTERIA 1-9 Few /HPF (None Seen); CASTS None Seen /LPF (None Seen); CRYSTALS None Seen /LPF (None Seen); MUCUS 0-3 Light strn/LPF (None Seen); SQUAMOUS 0-3 Few /LPF (0-3); URINE RBC 1-2 Rare /HPF (NONE SEEN); URINE WBC 1-5 Rare /HPF (NONE SEEN)
--- NOTE | 2020-11-10 03:34 | NUR ---
PT IS A/0X4 AND HAS PREVIOUS HX HERE AT [facility]. X1 ASSIST, PT USES CANE AT HOME. PT IS BANGL[place] SPEAKING WITH SOME MONGOLIAN SPOKEN. ADMISSION COMPLETED, CARE PLAN INITIATED, INTERVENTIONS SET, AND MED REC COMPLETED. POC WITH IVF STARTED. GI CONSULT WAS CALLED IN ER. TELE SHOWS AFIB, AND HAS SEEN DR. MARKS ON PREVIOUS VISITS.
[2020-11-10 05:11] LABS: HEMATOCRIT 34.6 % (37.0-47.0); HEMOGLOBIN 11.6 gm/dL (12.0-15.0); MCH 31.4 pg (26.0-34.0); MCHC 33.4 g/dL (28.0-37.0); RBC 3.68 mil/uL (4.20-5.00); RDW 13.1 % (10.5-14.5); WBC 4.9 thou/uL (4.0-11.0)
[2020-11-10 05:16] LABS: CALCIUM 9.1 mg/dL (8.5-10.1); POTASSIUM 3.6 mmol/L (3.5-5.1)
--- NOTE | 2020-11-10 12:07 | NUR ---
Case opened to follow for dc planning needs. Monitor Worker visited with the pt and her dtr Xochilt at bedside. Pt is Israeli speaking and YOMBA SHOSHONE. She lives indep in her own home. She uses a cane and is indep with gait and adl's. Her dtrs take turns coming by to check on her or help with errands and iadl's as needed. Her family feels she is pretty indep, no falls, and no hh history. GI consult in progress for possible bleed with plans for EGD tomorrow. Cm role introduced. Will follow should dc needs arise.
--- NOTE | 2020-11-10 17:28 | NUR ---
PATIENT CONTINUES ON WITH POC PER ORDERS. SEE PATIENT ASSESSMENTS, VSS. PLANS FOR COLONOSCOPY TOMORROW AROUND 1300 PER ORDERS, CONSENT OBTAINED AND IN CHART. DAUGHTER AT BEDSIDE FOR MOST OF SHIFT. PATIENT AMBULATED WITH CANE AND STANDBY ASSIST TO BSC. NO OTHER ACUTE CHANGES THIS SHIFT.
--- NOTE | 2020-11-10 20:30 | NUR ---
PT SITTING IN LOUNGE CHAIR, DAUGHTER AT BEDSIDE. PT DRINKING GO LYTELY PREP. PT ON CL LIQUID DIET, NPO P MN. PT VERBALIZED UNDERSTANDING. STEADY GAIT. STOOL STILL FORMED WITH SCANT BRIGHT BLOOD.
--- NOTE | 2020-11-11 00:12 | NUR ---
PT FINISHED ALL BUT TWO GLASSES OF GOLYTELY. SHE STATED SHE COULD NOT DRINK ANYMORE. PT VERBALIZED UNDERSTANDING OF NPO P MN. PT RETURNED TO BED. BED ALARM ON.
[2020-11-11 04:35] VITALS: BP 127/58
[2020-11-11 04:49] LABS: HEMATOCRIT 33.4 % (37.0-47.0); HEMOGLOBIN 11.1 gm/dL (12.0-15.0); MCH 31.3 pg (26.0-34.0); MCHC 33.2 g/dL (28.0-37.0); MCV 94.3 fL (80.0-100.0); RBC 3.54 mil/uL (4.20-5.00); RDW 13.3 % (10.5-14.5); WBC 3.7 thou/uL (4.0-11.0)
[2020-11-11 04:58] LABS: POTASSIUM 3.7 mmol/L (3.5-5.1)
[2020-11-11 06:56] VITALS: BP 126/71
[2020-11-11 10:57] VITALS: BP 131/67
--- NOTE | 2020-11-11 13:17 | NUR ---
SW reviewed chart and spoke with nursing and attending physician. Pt was just taken to GI lab for colonoscopy. Pt may discharge home following procedure. Per nursing pt is ambulating independently in her room. Pt lives at home. No discharge needs identified at this time. SW is available to assist should needs arise.
[2020-11-11 16:19] VITALS: BP 131/67
--- NOTE | 2020-11-11 17:20 | NUR ---
ASSUMED PATIENT CARE AT 0700. A/O X4. HAD COLONOSCOPY AT AFTERNOON. NO BLEEDING NOTED. DC TO HOME NOW.
== END 2020-11-11 17:33 | disposition home or self-care (01) | DRG 378 ==
LOC: ER 21:50 → EROBS 11-10 00:06 → 3W 11-10 00:06
PROVIDERS: Emergency Medicine; Nurse Practitioner; Nurse Practitioner Family; ADMIT Hospitalist; ATTEND Hospitalist
PROC: 0DJD8ZZ Inspection of Lower Intestinal Tract, Via Natural or Artificial Opening Endoscopic (ICD-10-PCS; principal; 2020-11-11)
DX: K57.31 Diverticulosis of large intestine without perforation or abscess with bleeding (principal); I48.20 Chronic atrial fibrillation, unspecified; I10 Essential (primary) hypertension; E78.00 Pure hypercholesterolemia, unspecified; E11.9 Type 2 diabetes mellitus without complications; G25.81 Restless legs syndrome; F41.9 Anxiety disorder, unspecified; E78.5 Hyperlipidemia, unspecified; K64.8 Other hemorrhoids; Z20.822 Contact with and (suspected) exposure to COVID-19; Z79.01 Long term (current) use of anticoagulants; Z87.442 Personal history of urinary calculi; Z87.81 Personal history of (healed) traumatic fracture; Z88.1 Allergy status to other antibiotic agents; Z79.899 Other long term (current) drug therapy
CPT/HCPCS: 10879; 62110; 62900; 70005

== ENCOUNTER → 2021-03-17 | Outpatient (CLI) | payer OTHER ==
[~2021-03-17] MED LIST changes: +SIMVASTATIN80 MG PO; +XARELTO15 MG PO
== END ==
LOC: BC 09:40
PROVIDERS: ATTEND Internal Medicine Cardiovascular Disease
DX: Z12.31 Encounter for screening mammogram for malignant neoplasm of breast (principal)

== ENCOUNTER → 2021-03-17 | Outpatient (CLI) | payer OTHER | LOC: SJCVCIMAG 08:52 | PROVIDERS: ATTEND Internal Medicine Cardiovascular Disease | DX: R94.31 Abnormal electrocardiogram [ECG] [EKG] (principal); I34.0 Nonrheumatic mitral (valve) insufficiency; I34.1 Nonrheumatic mitral (valve) prolapse; I48.91 Unspecified atrial fibrillation; I10 Essential (primary) hypertension; E78.00 Pure hypercholesterolemia, unspecified; I87.2 Venous insufficiency (chronic) (peripheral); D68.59 Other primary thrombophilia; I38 Endocarditis, valve unspecified; E11.9 Type 2 diabetes mellitus without complications; Z79.899 Other long term (current) drug therapy; Z88.1 Allergy status to other antibiotic agents; Z82.49 Family history of ischemic heart disease and other diseases of the circulatory system ==